=== PATIENT | female | born 1995 | race Caucasian/White ===

== ENCOUNTER 2016-05-25 19:52 | Inpatient (IN) | payer BC ==
[~2016-05-25] VITALS: Ht 167.6 cm; Wt 82.6 kg
[2016-05-25] MEDS: ACETAMINOPHEN 1000 MG/100 ML VIAL IV ONE (00:15)
[2016-05-25] MEDS: OXYTOCIN 30 UNITS-500ML PREMIX 500 ML IV ONE (01:00)
[2016-05-25] MEDS ORDERED: NS 1000 ML XX PRN (20:15)
[2016-05-25] MEDS ORDERED: LACTATED RINGER'S 1000 ML IV SCH (20:30)
[2016-05-25] MEDS ORDERED: ONDANSETRON HCL 4 MG/2 ML VIAL IV PRN (20:30)
[2016-05-25] MEDS ORDERED: DINOPROSTONE 10 MG INSERT-LEAVE FOR 12 HOURS VAGINAL ONE (20:30)
[2016-05-25] MEDS ORDERED: OXYTOCIN 30 UNITS 500ML PREMIX IV ONE (20:30)
[2016-05-25] MEDS ORDERED: LIDOCAINE HCL 1% 50 ML VIAL I-DERMAL PRN (20:30)
[2016-05-25] MEDS ORDERED: NS 500 ML BOLUS IV PRN (20:30)
[2016-05-25] MEDS ORDERED: LACTATED RINGER'S 1000 ML BOLUS IV PRN (20:30)
[2016-05-25] MEDS ORDERED: MINERAL OIL 10 ML VIAL TOP PRN (20:30)
[2016-05-25] MEDS ORDERED: CITRIC ACID-SODIUM CITRATE LIQ 30 ML UDC PO SCH (20:30)
[2016-05-25] MEDS ORDERED: NS 1000 ML IV PRN (20:30)
[2016-05-25] MEDS ORDERED: LIDOCAINE HCL 1% 50 ML VIAL INFIL PRN (20:30)
[2016-05-25 21:00] LABS: AUTOMATED NEUTROPHIL # 7.3 TH/MM3 (1.8-7.7); BASOPHIL # 0.1 TH/MM3 (0-0.2); BASOPHIL % 0.5 % (0.0-2.0); EOSINOPHIL # 0.1 TH/MM3 (0-0.4); EOSINOPHIL % 0.5 % (0.0-4.0); HEMATOCRIT 30.5 % (35.0-46.0); LYMPH % 20.9 % (9.0-44.0); LYMPHOCYTE # 2.1 TH/MM3 (1.0-4.8); MEAN CELL VOLUME 72.3 FL (80.0-100.0); MEAN CORPUSCULAR HEMOGLOBIN 23.8 PG (27.0-34.0); MEAN CORPUSCULAR HGB CONC 32.9 % (32.0-36.0); MONO % 5.8 % (0.0-8.0); NEUT % 72.3 % (16.0-70.0); PLATELET COUNT 277 TH/MM3 (150-450); RED BLOOD COUNT 4.22 MIL/MM3 (4.00-5.30); RED CELL DISTRIBUTION WIDTH 16.1 % (11.6-17.2)
[2016-05-25 21:04] LABS: HEMO FLAGS AUTO DIFF
[2016-05-25 21:11] LABS: BLOOD, URINE NEG (NEG); COMMENT (UR) CULT NOT INDICATED; CULTURE IF INDICATED CULT NOT INDICATED; GLUCOSE,URINE NEG (NEG); KETONE, URINE NEG (NEG); NITRITE,URINE NEG (NEG); SQUAMOUS EPITHELIAL CELL URINE 1 /hpf (0-5); URINE COLOR YELLOW (YELLW/STRAW)
[2016-05-25 21:36] VITALS: TEMP 98.5
[2016-05-25 21:38] VITALS: TEMP 99
[2016-05-25 21:41] VITALS: BP 134/64; PULSE 90; RESP 18
[2016-05-25 21:56] LABS: BANDS 4 % (0-6); MYELOCYTES 1 % (0-0); NEUTROPHIL # MANUAL DIFF 7.4 TH/MM3 (1.8-7.7); POLYS (SEG NEUTROPHILS) 69 % (16-70); WBC DIFF SAMPLE 100
[2016-05-25 21:57] LABS: OVALOCYTES 1+ (NORMAL)
[2016-05-25 21:58] LABS: PLATELET ESTIMATE SMEAR NORMAL (NORMAL); PLATELET MORPHOLOGY NORMAL (NORMAL); SCAN/DIFF FINAL DIFF MANUAL; TEARDROP RBCS 1+ (NORMAL)
[2016-05-25 22:02] VITALS: TEMP 98.6
[2016-05-25] MEDS ORDERED: OXYTOCIN 10 UNIT/ML AMP ONE (22:14)
[2016-05-25] MEDS ORDERED: ceFAZolin INJ 1,000 MG VIAL ONE ×2 (22:15→22:38)
[2016-05-25] MEDS ORDERED: EPIDURAL-DIPHENHYDRAMINE HCL 50 MG/ML VIAL IV PUSH PRN (22:25)
[2016-05-25] MEDS ORDERED: EPIDURAL-DIPHENHYDRAMINE HCL 50 MG CAP PO PRN (22:25)
[2016-05-25] MEDS ORDERED: EPIDURAL-NALOXONE HCL 0.4 MG/ML AMP IV PRN (22:25)
[2016-05-25] MEDS ORDERED: EPIDURAL-NO SYSTEMIC NARCOTICS XX PRN (22:25)
[2016-05-25] MEDS ORDERED: EPIDURAL-DO NOT ADMINISTER ANTICOAGULANTS XX PRN (22:25)
[2016-05-25 23:08] LABS: BLOOD GAS BASE EXCESS -0.1 mmol/L (-2-2); BLOOD GAS O2 HGB SATURATION 18 % (90-100); CORD BLOOD GAS HCO3 25 mmol/L (21-29); CORD BLOOD GAS PCO2 45 mmHG (34-78); CORD BLOOD GAS PH 7.36 (7.14-7.42); CORD BLOOD GAS PO2 14 mmHG (3.0-40.0); DRAW SITE CORD BLOOD; STAT YES
--- NOTE | 2016-05-25 23:26 | PD.OB.DELI ---
Procedure Note Section Procedure Performed by Dany Cannon Procedure: Primary Low Transverse Sec Indication for delivery: Nonreassuring heart tracing ( tachycardia) Informed consent obtained: For anesthesia, For procedure Confirmed correct: Patient, Procedure, Site, Time-out taken Anesthesia: Spinal Medication prior to procedure: As documented in eMAR Monitoring during procedure: Blood pressure monitoring, quality process auditor, doppler, Pulse oximetry Urinary catheter: Inserted using sterile technique, To dependent drainage Sterile preparation: Duraprep Position: Supine with wedge to right side, Supine with safety belt applied Operative Features Skin Incision: Pfannenstiel Uterine Incision: Low transverse w/knife / scissors Membranes Ruptured: Artificially Presentation: Occiput anterior Delivery of : Assisted (kiwi vacuum x1 easy pull) : Female One Minute : 9 Five Minute : 9 Weight: 7# 12oz Status of infant: Viable, Cord blood, Umbilical cord, Nursery present Placenta delivered: Intact Medications: Antibiotics, Oxytocin Estimated blood loss: 650cc Procedure tolerated: Well Maternal Condition: Stable Condition: Stable Dany Cannon MD May 25, 2016 23:26
[2016-05-25] MEDS ORDERED: MORPHINE SULFATE PF 5 MG/10 ML VIAL ONE (23:27)
[2016-05-25 23:30] VITALS: BP 145/85; PULSE 89; RESP 18; TEMP 98.1; O2SAT 100
[2016-05-25] MEDS ORDERED: SODIUM CHLORIDE 0.9% FLUSH 5 ML FLUSH IV PRN (23:30)
[2016-05-25] MEDS ORDERED: ONDANSETRON HCL 4 MG/2 ML VIAL IV PUSH PRN (23:30)
[2016-05-25] MEDS ORDERED: oxyCODONE/ACETAMINOPHEN 5 MG/325 MG TAB PO PRN ×2 (23:30)
[2016-05-25] MEDS: SODIUM CHLORIDE 0.9% FLUSH 5 ML FLUSH IV SCH (23:30)
[2016-05-25] MEDS ORDERED: SIMETHICONE 80 MG CHEWABLE TAB PO PRN (23:30)
[2016-05-25 23:45] VITALS: BP 139/79; PULSE 83; RESP 18; O2SAT 99
[2016-05-25] MEDS ORDERED: LACTATED RINGER'S 1000 ML INJ 1,000 ML IV ONE ×2 (23:49)
[2016-05-26] VITALS (8 sets, daily range): BP systolic 128–148; BP diastolic 71–88; PULSE 75–84; RESP 16–18; TEMP 98.2–98.7; O2SAT 99
[2016-05-26] MEDS ORDERED: OXYTOCIN 30 UNITS-500ML PREMIX 500 ML ONE (00:10)
[2016-05-26] MEDS ORDERED: ACETAMINOPHEN 1000 MG/100 ML VIAL IV ONE (00:10)
[2016-05-26] MEDS: ACETAMINOPHEN 1000 MG/100 ML VIAL IV ONE (00:15)
[2016-05-26] MEDS: OXYTOCIN 30 UNITS-500ML PREMIX 500 ML IV ONE (01:19)
[2016-05-26] MEDS ORDERED: PREN29TA PO (03:02)
[2016-05-26] MEDS ORDERED: ALBUAER3 INH (03:02)
[2016-05-26] MEDS ORDERED: LACTATED RINGER'S 1000 ML INJ 1,000 ML IV SCH (04:22)
--- NOTE | 2016-05-26 08:40 | MH ---
cc: SRI HILTON M.D. DATE OF ADMISSION 05/25/2016 DATE OF 1995 CHIEF COMPLAINT Patient term intrauterine , estimated date confinement is May 25, 2016. HISTORY The patient is a 20-year-old female 1, para 0, last menstrual period was September 02, 2015. Her estimated due date based on her early first trimester ultrasound is May 25, 2016. The patient's ultrasound was performed November 03 and baby was exactly 11 weeks based on crown-rump length. The patient presents today complaining of mild malaise, pelvic pressure. Denies any blurry vision, headaches. The patient has gained approximately 6 pounds over the last 2 weeks. Blood pressure today is 130/80. The patient was counseled to her options. The patient's cervix is favorable and Cervidil induction was scheduled. PAST MEDICAL HISTORY The patient has a history of asthma that has been stable. The patient uses albuterol inhaler as needed. PAST SURGICAL HISTORY The patient denies any past surgical history. ALLERGIES NO KNOWN DRUG ALLERGIES. MEDICATIONS Current medications include: 1. Penicillin. 2. vitamins. 3. Albuterol inhaler p.r.n. SOCIAL HISTORY The patient denies alcohol, drug or illicit substance abuse. Does not smoke. FAMILY HISTORY The patient's family history is unremarkable. OBSTETRICAL HISTORY The patient had an uncomplicated , has had good care. The patient's group B strep culture was negative. Blood type is A+. PHYSICAL EXAMINATION GENERAL: The patient is well-appearing, well-nourished female in no acute distress. VITAL SIGNS: Stable. Blood pressures 130/80, pulse and respiratory rate are normal. The baby's heart rate is in the 140s. HEENT: Exam shows no thyromegaly. Neck is supple. Full range of motion. LUNGS: Clear in all peña. CARDIOVASCULAR: Regular rate and rhythm without murmur, rub or gallop. ABDOMEN: Gravid, full-term. PELVIC: Cervix is 50-60% effaced, slightly posterior, 1-2 cm on the external os, 1 cm internal. Position is -2, vertex, intact membranes. EXTREMITIES: Symmetrical. Full range of motion. She has 1+ pedal edema. There is no clonus on her deep tendon reflexes. Neurologic: Exam is nonfocal. ASSESSMENT 40 weeks gestation primate for elective induction of labor with Cervidil. The patient's group B strep status is negative. MD VAISHNAVI Abraham/KK /4:33 PM /8:38 AM
--- NOTE | 2016-05-26 08:40 | MP ---
cc: DANY HILTON M.D. DATE OF SURGERY 05/25/2016 PREOPERATIVE DIAGNOSIS Term intrauterine with persistent tachycardia and non-reassuring heart rate tracing. PROCEDURE Primary low transverse section delivery of a viable female infant. POSTOPERATIVE DIAGNOSIS Term intrauterine with persistent tachycardia and non-reassuring heart rate tracing. SURGEON Dany Hilton MD ANESTHESIA Spinal ESTIMATED BLOOD LOSS 650 cc. DRAINS Buck to gravity OPERATIVE FINDINGS Female delivered LOT position. Clear fluid. Nuchal cord loose, 's are 9 at one minute and 9 at five. No evidence of cord entanglement. Placenta was intact. Placenta was sent for formal pathology. No evidence of abruption noted. INDICATION FOR THE PROCEDURE The patient was brought in for elective induction. Prior to use of any induction agent, heart rate tracing demonstrated persistent elevated heart rate. heart rate initially was category one and quickly escalated to category two with persistent heart rate in the 180's beats per minute. Decreased variability was noted and after observation for an hour, recommendation was to proceed with operative delivery. PROCEDURE The patient was taken to the operating room in stable condition. The patient underwent spinal anesthetic without complication. She was then prepped and draped and positioned on the table in the usual standard fashion. She had sequential's placed on her lower extremities for VTE prophylaxis. She had a Buck catheter inserted by sterile technique. After she was prepped and draped, time-out was conducted and agreed by all present in the room. The patient had excellent pain management throughout. heart rate tracing was again documented prior to prepping which was consistent with the persistent tachycardia in the 180's. There were no decelerations noted. The incision was made and advanced in a Pfannenstiel type manner using a #10 blade, carrying it through the skin down through subcutaneous layer to the fascia which was scored laterally by sharp dissection dissecting the rectus muscle where from the rectus belly and fascia. The muscle belly was in the middle identifying the peritoneum and opening the peritoneum sharply. The incision was extended bluntly. The bladder blade was placed over the pubic symphysis. A transverse incision was made. Bladder flap was developed briefly and then a transverse incision was made in the lower uterine segment with clear fluid. The incision was extended bluntly and then the vertex was delivered requiring the use of a vacuum using a small Kiwi with one gentle pull without complication. Loose nuchal cord was noted. Infant was delivered in total with good tone and cry. The cord was doubly clamped and cut the infant was taken to the isolette by the nurse nursery staff present. Cord segment was obtained for cord blood gas assessment. The placenta was removed after obtaining a cord typing sample from the umbilical cord. The placenta was intact. Examination revealed no significant pathology. The uterus was then explored. No retained tissue. It was closed with a double layer first with a running locking suture of 0 Monocryl, followed by a second imbricating suture of 0 Monocryl. Good tocolysis was noted. The uterus was linda firmly. No active bleeding or hematoma. The pelvis was irrigated. All free blood and clot was removed. A full count was made and correct. The peritoneum was then closed with a running suture of 2-0 Monocryl. Muscle bellies were reapproximated loosely with an interrupted mattress suture of 2-0 Monocryl. The fascia was then closed with 0 Vicryl in a simple running fashion. The subcutaneous layer was examined. No evidence of bleeding. The subcutaneous space was closed with a running suture of 2-0 Monocryl and julio were used to reapproximate the skin edge for the final closure. A dressing was applied to the wound. The patient was stable. The baby was doing well in the regular nursery. MD VAISHNAVI Abraham/FITO /11:30 PM /8:23 AM
--- NOTE | 2016-05-26 09:13 | HHI.OB ---
Subjective Post Operative Day: 1 Remarks Feeling well pain controlled Objective Vitals/I&O Vital Signs Date Time Temp Pulse Resp B/P Pulse Ox O2 Delivery O2 Flow Rate FiO2 05/26/16 09:00 98.4 05/26/16 09:00 81 16 137/79 05/26/16 05:00 98.2 83 18 132/71 05/26/16 00:45 148/87 05/26/16 00:44 79 16 99 05/26/16 00:30 98.4 05/26/16 00:30 84 16 145/88 99 05/26/16 00:15 141/83 05/26/16 00:15 75 18 99 05/26/16 00:00 80 18 138/81 05/26/16 00:00 80 18 138/81 05/26/16 00:00 99 05/25/16 23:45 139/79 05/25/16 23:45 83 18 99 05/25/16 23:30 89 18 145/85 05/25/16 23:30 98.1 100 05/25/16 22:02 98.6 05/25/16 21:41 90 18 134/64 05/25/16 21:38 99.0 05/25/16 21:36 98.5 Result Diagram: 05/25/162029 Objective Remarks GENERAL: Well-nourished, well-developed patient. CARDIOVASCULAR: Regular rate and rhythm without murmurs, gallops, or rubs. RESPIRATORY: Breath sounds equal bilaterally. No accessory muscle use. ABDOMEN/GI: Abdomen soft, non-tender, bowel sounds present. Incision: Clean, dry and intact. Fundus: Firm, non-tender at umbilicus. GENITOURINARY: Light to moderate bleeding. EXTREMITIES: No cyanosis or edema, non-tender, without signs of DVT. Medications and IVs Current Medications Medications (Trade) Dose Ordered Sig/Celeste Route Start Time Stop Time Status Last Admin (Lr 1000 ml Inj) 1,000 ml @ 100 mls/hr Q10H IV 05/26/16 04:22 05/27/16 00:21 05/26/16 06:16 (NS Flush) 2 ml BID IV 05/25/16 23:30 (NS Flush) 2 ml UNSCH PRN IV 05/25/16 23:30 05/26/16 06:17 (Mylicon Chew) 80 mg QID PRN PO 05/25/16 23:30 (Tylenol) 650 mg Q6H PRN PO 05/25/16 23:30 (Motrin) 600 mg Q6H PRN PO 05/25/16 23:30 (Percocet 5-325 Mg) 1 tab Q4H PRN PO 05/25/16 23:30 (Percocet 5-325 Mg) 2 tab Q4H PRN PO 05/25/16 23:30 (Marii-Colace) 2 tab Q12H PRN PO 05/25/16 23:30 (M-M-R Ii Inj) 0.5 ml ONCE ONCE SQ 05/26/16 16:00 05/26/16 16:01 (Boostrix Inj) 0.5 ml ONCE ONCE IM 05/26/16 16:00 05/26/16 16:01 (Zofran Inj) 4 mg Q6H PRN IV PUSH 05/25/16 23:30 Miscellaneous Information NO SYSTEMIC NARCOTICS TO BE GIVEN FO... UNSCH PRN XX 05/25/16 22:25 05/26/16 22:24 (Narcan Inj) 0.4 mg UNSCH PRN IV 05/25/16 22:25 05/26/16 22:24 (Benadryl Inj) 25 mg Q6H PRN IV PUSH 05/25/16 22:25 05/26/16 22:24 05/26/16 06:17 (Benadryl) 50 mg Q6H PRN PO 05/25/16 22:25 05/26/16 22:24 Miscellaneous Information ALL NURSING DEPARTMENTS UNSCH PRN XX 05/25/16 22:25 05/26/16 22:24 Assessment/Plan Assessment and Plan Doing well POST Op 1 anticipate normal progress home POD 3 Kiara Isaac MD May 26, 2016 09:13
[2016-05-26] MEDS ORDERED: OXYTOCIN 30 UNITS-500ML PREMIX 500 ML IV PRN (09:30)
[2016-05-26] MEDS: IBUPROFEN 600 MG TAB PO PRN ×2 (11:06→18:33)
[2016-05-26] MEDS: DOCUSATE SODIUM 50 MG/SENNA 8.6 MG TAB PO PRN (11:06)
[2016-05-26] MEDS ORDERED: MEASLES, MUMPS, RUBELLA VACCINE 0.5 ML VIAL SQ ONE (16:00)
[2016-05-26] MEDS ORDERED: DIPHTH/TETANUS/ACEL PERTUSSIS (BOOSTER) 0.5 ML VIAL/PFS IM ONE (16:00)
[2016-05-26] MEDS: ACETAMINOPHEN 325 MG TAB PO PRN (18:34)
[2016-05-26] MEDS: SODIUM CHLORIDE 0.9% FLUSH 5 ML FLUSH IV SCH (21:00)
[2016-05-27] MEDS: ACETAMINOPHEN 325 MG TAB PO PRN ×4 (04:35→22:32)
[2016-05-27] MEDS: IBUPROFEN 600 MG TAB PO PRN ×4 (04:35→22:32)
[2016-05-27] MEDS: DOCUSATE SODIUM 50 MG/SENNA 8.6 MG TAB PO PRN ×2 (04:35→16:23)
[2016-05-27 08:00] VITALS: BP 127/78; PULSE 74; RESP 18; TEMP 98
--- NOTE | 2016-05-27 08:47 | HHI.OB ---
Subjective Post Operative Day: 2 Remarks doingi well in excellent spirits for discharge tomorow Objective Vitals/I&O Vital Signs Date Time Temp Pulse Resp B/P Pulse Ox O2 Delivery O2 Flow Rate FiO2 05/27/16 08:00 98.0 74 18 127/78 05/26/16 16:55 98.7 80 18 128/82 05/26/16 09:00 98.4 05/26/16 09:00 81 16 137/79 Result Diagram: 05/25/162029 Objective Remarks GENERAL: Well-nourished, well-developed patient. CARDIOVASCULAR: Regular rate and rhythm without murmurs, gallops, or rubs. RESPIRATORY: Breath sounds equal bilaterally. No accessory muscle use. ABDOMEN/GI: Abdomen soft, non-tender, bowel sounds present. Incision: Clean, dry and intact. Fundus: Firm, non-tender at umbilicus. GENITOURINARY: Light to moderate bleeding. EXTREMITIES: No cyanosis or edema, non-tender, without signs of DVT. Medications and IVs Current Medications Medications (Trade) Dose Ordered Sig/Celeste Route Start Time Stop Time Status Last Admin (NS Flush) 2 ml BID IV 05/25/16 23:30 (NS Flush) 2 ml UNSCH PRN IV 05/25/16 23:30 05/26/16 06:17 (Mylicon Chew) 80 mg QID PRN PO 05/25/16 23:30 (Tylenol) 650 mg Q6H PRN PO 05/25/16 23:30 05/27/16 04:35 (Motrin) 600 mg Q6H PRN PO 05/25/16 23:30 05/27/16 04:35 (Percocet 5-325 Mg) 1 tab Q4H PRN PO 05/25/16 23:30 (Percocet 5-325 Mg) 2 tab Q4H PRN PO 05/25/16 23:30 (Marii-Colace) 2 tab Q12H PRN PO 05/25/16 23:30 05/27/16 04:35 (Zofran Inj) 4 mg Q6H PRN IV PUSH 05/25/16 23:30 Assessment/Plan Assessment and Plan Doing well POST Op 2 anticipate normal progress home POD 3 Kiara Isaac MD May 27, 2016 08:47
--- NOTE | 2016-05-27 09:21 | HHI.DCPOC ---
Discharge Care Plan Diagnosis: (1) S/P primary low transverse (2) Anemia Your Health Problems Are: delivery Report Symptoms to Your Doctor -Temperate above 100.5 degrees -Redness, of incision or excessive or foul smelling drainage -Unusual pain or calf pain -Increased vaginal bleeding -Painful or difficulty urinating -Feelings of extreme sadness or anxiety after 2 weeks Goals to Promote Your Health * To prevent worsening of your condition and complications * To maintain your health at the optimal level Directions to Meet Your Goals Take your medications as prescribed Follow your dietary instruction Follow activity as directed Ensure plenty of rest for recovery Drink fluids for hydration Keep your appointments as scheduled Take your immunizations and boosters as scheduled If your symptoms worsen call your PCP, if no PCP go to Urgent Care Center or Emergency Room Smoking is Dangerous to Your Health. Avoid second hand smoke Call the 24-hour crisis hotline for domestic abuse at Nancy Bourgeois May 27, 2016 09:21
[2016-05-27 11:54] LABS: HEMATOCRIT 24.8 % (35.0-46.0); MEAN CELL VOLUME 72.9 FL (80.0-100.0); MEAN CORPUSCULAR HEMOGLOBIN 23.6 PG (27.0-34.0); MEAN CORPUSCULAR HGB CONC 32.4 % (32.0-36.0); PLATELET COUNT 201 TH/MM3 (150-450); RED BLOOD COUNT 3.41 MIL/MM3 (4.00-5.30); RED CELL DISTRIBUTION WIDTH 16.2 % (11.6-17.2); WHITE BLOOD COUNT 9.5 TH/MM3 (4.0-11.0)
[2016-05-27 11:56] LABS: REVIEW FLAG FINAL
[2016-05-27 15:15] VITALS: BP 128/80; PULSE 80; RESP 16; TEMP 98.4
[2016-05-28] MEDS: ACETAMINOPHEN 325 MG TAB PO PRN (05:59)
[2016-05-28] MEDS: IBUPROFEN 600 MG TAB PO PRN (05:59)
[2016-05-28 08:16] VITALS: BP 125/75; PULSE 80; RESP 16; TEMP 97.6
== END 2016-05-28 12:27 | disposition home or self-care (01) | DRG 766 ==
LOC: H2EA 19:52 → H1EA 05-26 01:02
PROVIDERS: ADMIT Obstetrics & Gynecology; ATTEND Obstetrics & Gynecology
PROC: 10D00Z1 Extraction of Products of Conception, Low, Open Approach (ICD-10-PCS; principal; 2016-05-25)
DX: O76 Abnormality in fetal heart rate and rhythm complicating labor and delivery (principal); J45.909 Unspecified asthma, uncomplicated; Z37.0 Single live birth; Z3A.40 40 weeks gestation of pregnancy; O99.52 Diseases of the respiratory system complicating childbirth
CPT/HCPCS: 59025; 81001; 82805; 85007; 85027; 86900; 86901; 88307; J0131; J0690; J1200; J2274; J2590; J7120